=== PATIENT | female | born 1955 | race African-American/Black ===

== ENCOUNTER 2020-05-25 12:44 | Emergency (ER) | payer MEDICARE, OTHER ==
[~2020-05-25] VITALS: Ht 172.7 cm; Wt 99.8 kg
--- NOTE | 2020-05-25 13:10 | NUR ---
ED Nurse Note: Pt walked in from MD's office d/t having bp of over 200 systolic. Pt also c/o left knee pain x a couple days. BP 188/89 @ triage. All other vitals stable as documented. Pt denies injury to affected leg or chest pain. Respirations even and unlabored on room air.
--- NOTE | 2020-05-25 13:10 | Emergency Room Report ---
History of Present Illness General Chief Complaint: Hypertension Source: Patient Present Illness HPI Disclaimer: Please note that this report is being documented using [employer] technology. This can lead to erroneous entry secondary to incorrect interpretation by the dictating instrument. HPI: 65-year-old female with a history of obesity, hypertension, hyperlipidemia , diabetes presents for evaluation of elevated blood pressure readings and left leg pain and swelling. Patient was at her [employer] physician where blood pressures were found to be greater than 200 systolic. She denied any symptoms at this time. Denies chest pain, shortness of breath, palpitations, headache, visual changes, unsteadiness, vertiginous symptoms, lightheadedness or other changes in her health. 2 days ago she started experiencing pain over the lateral aspect of the left knee and intermittent swelling. Denies overlying skin changes. Cannot recall specific injury. She takes benazepril for hypertension and took it this morning. PMH: Hypertension, hyperlipidemia, diabetes PSH: Reviewed Allergies: Reviewed Social Hx: Non-smoker Allergies: Coded Allergies: No Known Allergies (Unverified , 05/25/20) Review of Systems All Other Systems: negative except mentioned in HPI Physical Exam General: Awake and alert, no acute distress HEENT: NC/AT. EOMI. Cardiovascular: RRR. S1 and S2 normal. No murmur appreciated Resp: Normal work of breathing. No cough, wheezing or crackles appreciated Abdomen: Abdomen is soft, obese, nondistended. Nontender Skin: Intact. No abrasions, laceration or rash over the exposed skin MSK: Normal tone and bulk. Moving all extremities. No obvious deformity. Tenderness palpation over the medial aspect of the left knee without joint instability. Pain is exacerbated by bending. No distal swelling though there is some edema around the knee. No obvious effusion. Neuro: Awake and alert. Mentating appropriately. Medical Decision Making Diagnostic Impression: Primary Impression: Hypertension Additional Impression: Knee pain ER Course 65-year-old female presents for evaluation of elevated blood pressure readings at her physician's office earlier today as well as 2 days of atraumatic unilateral knee pain and swelling. Patient was recently admitted to the hospital for COVID-19 1 month ago but has tested negative multiple times since then. Otherwise has no acute medical issues and states her other chronic medical issues are well controlled. She took her benazepril this morning. She will be given oral antihypertensives. Labs have returned within normal limits and a DVT study of the lower extremities performed which does not find evidence of acute DVT. Likely knee strain. Patient will be placed in a Shravan wrap for comfort and stability. Discharged to follow-up with her PMD for evaluation of blood pressure control and knee pain. Laboratory Tests Test 05/25/20 13:20 White Blood Count 5.9 K/UL (4.8-10.8) Red Blood Count 4.37 M/UL (4.20-5.40) Hemoglobin 12.0 G/DL (12.0-16.0) Hematocrit 38.9 % (37.0-47.0) Mean Corpuscular Volume 89 FL (80-99) Mean Corpuscular Hemoglobin 27.5 PG (27.0-31.0) Mean Corpuscular Hemoglobin Concent 30.9 G/DL (32.0-36.0) L Red Cell Distribution Width 15.1 % (11.6-14.8) H Platelet Count 256 K/UL (150-450) Mean Platelet Volume 8.8 FL (6.5-10.1) Neutrophils (%) (Auto) 46.0 % (45.0-75.0) Lymphocytes (%) (Auto) 45.5 % (20.0-45.0) H Monocytes (%) (Auto) 6.2 % (1.0-10.0) Eosinophils (%) (Auto) 1.0 % (0.0-3.0) Basophils (%) (Auto) 1.3 % (0.0-2.0) Sodium Level 141 MMOL/L (136-145) Potassium Level 3.7 MMOL/L (3.5-5.1) Chloride Level 105 MMOL/L (98-107) Carbon Dioxide Level 26 MMOL/L (21-32) Anion Gap 10 mmol/L (5-15) Blood Urea Nitrogen 6 mg/dL (7-18) L Creatinine 0.8 MG/DL (0.55-1.30) Estimated Glomerular Filtration Rate > 60 mL/min (>60) Glucose Level 122 MG/DL (74-106) H Calcium Level 9.3 MG/DL (8.5-10.1) Total Bilirubin 0.5 MG/DL (0.2-1.0) Aspartate Amino Transferase (AST) 17 U/L (15-37) Alanine Aminotransferase (ALT) 20 U/L (12-78) Alkaline Phosphatase 77 U/L (46-116) Troponin I 0.004 ng/mL (0.000-0.056) Total Protein 7.9 G/DL (6.4-8.2) Albumin 3.9 G/DL (3.4-5.0) Globulin 4.0 g/dL Albumin/Globulin Ratio 1.0 (1.0-2.7) EKG Diagnostic Results EKG Time: 13:14 Rate: normal Rhythm: NSR ST Segments: no acute changes Other Impression Sinus rhythm, normal axis, normal intervals, nonspecific T wave flattening. Rhythm Strip Diag. Results Rhythm Strip Time: 13:14 EP Interpretation: yes Rate: 67 Rhythm: NSR, no PVC's, no ectopy Chest X-Ray Diagnostic Results Chest X-Ray Diagnostic Results : Chest X-Ray Ordered: Yes # of Views/Limited/Complete: 1 View Indication: Other - edema Interpretation: no consolidation, no effusion, no pneumothorax Impression: No acute disease Electronically Signed by: Electronically signed by Dr. Orlando Sherwood CT/MRI/US Diagnostic Results CT/MRI/US Diagnostic Results : Impression Procedure: Venous Duplex Lower Ext Uni Indication: Left leg pain Technique: Grayscale and duplex images of the left lower extremity veins Comparison: None Findings: On the left, grayscale and duplex images demonstrate no evidence of intraluminal thrombus. Normal phasic Doppler waveforms, demonstrating normal augmentation response and no evidence of valvular insufficiency. Greater saphenous vein(s) and tibial veins are patent. Normal compressibility. Impression: Negative for evidence of lower extremity deep venous thrombosis on the left Dictated By: Moreno Hui MD Electronically Signed By: Moreno Hui MD Signed Date/Time 05/25/20 1510 Disposition: HOME, SELF-CARE Condition: Stable Scripts Diclofenac Sodium (VOLTAREN) 100 Gm Gel..gram. 5 GM TP DAILY, #120 GM Prov: Danilo Rose MD 05/25/20 Orlando Sherwood MD May 25, 2020 13:10
[2020-05-25 13:30] VITALS: BP 172/99
[2020-05-25] MEDS ORDERED: BENAZEPRIL HCL40 MG ORAL (13:39)
[2020-05-25 13:45] LABS: BASOPHILS % (AUTO) 1.3 % (0.0-2.0); HEMATOCRIT 38.9 % (37.0-47.0); LYMPHOCYTES % (AUTO) 45.5 % (20.0-45.0); MEAN CORPUSCULAR VOLUME 89 FL (80-99); MONOCYTES % (AUTO) 6.2 % (1.0-10.0); PLATELET COUNT 256 K/UL (150-450); RED BLOOD COUNT 4.37 M/UL (4.20-5.40); RED CELL DISTRIBUTION WIDTH 15.1 % (11.6-14.8); WHITE BLOOD COUNT 5.9 K/UL (4.8-10.8)
[2020-05-25 13:46] LABS: ANION GAP 10 mmol/L (5-15); BLOOD UREA NITROGEN 6 mg/dL (7-18); CALCIUM 9.3 MG/DL (8.5-10.1); CARBON DIOXIDE 26 MMOL/L (21-32); CHLORIDE 105 MMOL/L (98-107); CREATININE 0.8 MG/DL (0.55-1.30); POTASSIUM 3.7 MMOL/L (3.5-5.1); SODIUM 141 MMOL/L (136-145)
[2020-05-25 13:50] LABS: ALANINE AMINOTRANSFERASE 20 U/L (12-78); ALBUMIN 3.9 G/DL (3.4-5.0); ALKALINE PHOSPHATASE 77 U/L (46-116); ASPARTATE AMINO TRANSFERASE 17 U/L (15-37); BILIRUBIN,TOTAL 0.5 MG/DL (0.2-1.0)
--- NOTE | 2020-05-25 14:23 | Diagnostic Imaging Report ---
Indication: Shortness of breath Technique: One view of the chest Comparison: none Findings: Heart size is normal. The aorta is calcified. The lungs and pleural spaces are clear. Impression: No acute process
[2020-05-25 14:46] VITALS: BP 146/71
--- NOTE | 2020-05-25 15:15 | Diagnostic Imaging Report ---
Indication: Left leg pain Technique: Grayscale and duplex images of the left lower extremity veins Comparison: None Findings: On the left, grayscale and duplex images demonstrate no evidence of intraluminal thrombus. Normal phasic Doppler waveforms, demonstrating normal augmentation response and no evidence of valvular insufficiency. Greater saphenous vein(s) and tibial veins are patent. Normal compressibility. Impression: Negative for evidence of lower extremity deep venous thrombosis on the left
[2020-05-25] MEDS ORDERED: VOLTAREN100 G1 TP (15:33)
[2020-05-25 15:40] VITALS: BP 138/74
--- NOTE | 2020-05-25 15:40 | NUR ---
ER DISCHARGE NOTE: Patient is cleared to be discharged per ERMD, pt is aox4, on room air, with stable vital signs. pt was given dc and prescription instructions, pt was able to verbalize understanding, pt id band and iv site removed without complications. pt is able to ambulate with steady gait. pt took all belongings.
== END 2020-05-25 15:40 | disposition home or self-care (01) ==
LOC: EMR 13:15
DX: I10 Essential (primary) hypertension (principal); M25.562 Pain in left knee; E78.5 Hyperlipidemia, unspecified; E11.9 Type 2 diabetes mellitus without complications
CPT/HCPCS: 36415; 71045; 80053; 84484; 85025; 93005; 93971; 99283